=== PATIENT | female | born 1965 | race Caucasian/White ===

== ENCOUNTER → 2020-04-15 10:21 | Outpatient (BNVA) | payer OTHER, SELFPAY | PROVIDERS: Visit Provider Surgery | DX: Z76.89 Persons encountering health services in other specified circumstances (principal) ==

== ENCOUNTER 2020-05-02 09:59 | Outpatient (REF) | payer OTHER, SELFPAY ==
--- NOTE | 2020-05-02 10:11 | FL_ITS ---
PROCEDURE: XR BARIUM ENEMA CLINICAL INFORMATION: Diverticulitis of intestine. Status post one anastomosis. Check for patency and leak. COMPARISON: CT abdomen and pelvis 02/05/2020. TECHNIQUE: A single KUB is obtained. Subsequently a balloon-inflated catheter was inserted through the rectum and 50-50/Gastrografin inserted retrogradely. FINDINGS: On KUB there are postsurgical sutures seen overlying the mid to inferior midline sacrum. The bowel gas pattern is nonspecific. Following retrograde administration of diluted Gastrografin there is normal passage of contrast through the anastomotic sigmoid segment in the mid pelvis. No extravasation of contrast seen. The oral contrast extended to the splenic flexure and appeared unremarkable. FLUOROSCOPY TIME: 1.8 minutes. DOSE AREA PRODUCT: 206 uGy-m2 (microgray-meter squared). IMPRESSION: Widely patent anastomotic sigmoid segment with no extravasation of contrast seen to suspect leak.
[2020-05-02] MEDS: Diatrizoate Meglumine, Sodium 120 ML SOLUTION PR (13:37)
== END 2020-05-02 10:00 | disposition home or self-care (01) ==
LOC: HO.XRAY 09:59
PROVIDERS: Visit Provider Surgery
DX: K57.92 Diverticulitis of intestine, part unspecified, without perforation or abscess without bleeding (principal)
CPT/HCPCS: 74270

== ENCOUNTER 2020-05-05 05:59 | Inpatient (IN) | payer OTHER, SELFPAY ==
[2020-04-20 08:12] VITALS: BMI 47.0
[2020-04-21 11:52] VITALS: BP 133/72; PULSE 91; RESP 18; O2SAT 97; BMI 47.6
--- NOTE | 2020-04-21 12:15 | HO.ANESPROP2 ---
Documented by User: Baylee Ethel 04/21/20 12:33 HPI - Anesthesia Eval Consult details Narrative: 54yo F for colostomy closure S/P bowel resect 01/2020 and 02/2020 [facility] Past Medical History Medical History (Updated 04/21/20 @ 12:43 by Maggie Jett) Anxiety Arthritis Back pain Diverticulitis HTN (hypertension) Lab test negative for COVID-19 virus Obese Wears reading eyeglasses Family History Family history of problems with anesthesia: No Surgical History Surgical History (Updated 04/21/20 @ 12:02 by Maggie Jett) History of colectomy (~02/06/20) History of colectomy (~03/14/20) History of colonoscopy (~2018) History of Problems with Anesthesia: No Social History Social History Are you a primary director of critical care to a significant other at home: No Do you presently have visiting nurse or other home services: No Alcohol intake: never Smoking Status: Never smoker Second Hand Smoke Exposure: No Use of substances other than those prescribed or required for medical reasons: No Have you been hit, kicked, punched, or otherwise hurt by someone within the past year? If so, by whom?: No Advance Directives: Yes Advance Directives on File: Yes Advance Directives Date on File: 03/13/20 Recently lost weight without trying: Yes Narrative Narrative: No recent illness. >4 mets with walking. [address] Muller for infection in incision site Meds Allergies Allergy/AdvReac Type Severity Reaction Status Date / Time atropine Allergy Intermediate abd pain Verified 04/21/20 12:16 ciprofloxacin [From CIPRO] Allergy Intermediate VOMITING Verified 04/21/20 12:16 chlordiazepoxide AdvReac Severe ABDOMINAL Verified 04/21/20 12:16 [From LIBRAX (WITH PAIN CLIDINIUM)] diphenoxylate [From LOMOTIL] AdvReac Severe ABDOMINAL Verified 04/21/20 12:16 PAIN codeine [CODEINE] AdvReac Intermediate NAUSEA Verified 04/21/20 12:16 Home Medications Medication Instructions Recorded Confirmed Type amoxicillin 500 mg-potassium 1 tab PO Q8H 04/14/20 04/21/20 History clavulanate 125 mg tablet escitalopram oxalate 10 mg tablet 10 mg PO DAILY 04/14/20 04/21/20 History fluticasone propionate 50 2 spray INTRANASAL DAILY 04/14/20 04/21/20 History mcg/actuation nasal spray,suspension lisinopril 20 mg tablet 20 mg PO DAILY 04/14/20 04/21/20 History Exam Exam Date and Time: April 21, 2020 1215 Height,Weight and Vital Signs: Height 4 ft 10 in Weight 103.419 kg Last Vital Signs Pulse 91 04/21/20 11:52 Resp 18 04/21/20 11:52 BP 133/72 04/21/20 11:52 Pulse Ox 97 04/21/20 11:52 Body Mass Index 47.6 Pertinent Lab Results Pertinent Lab Results: Laboratory Tests 03/15/20 03/15/20 06:06 06:06 WBC 12.4 H Hgb 11.0 L Hct 34.1 L Plt Count 226 Sodium 137 Potassium 4.5 Chloride 102 BUN 8 L Creatinine 0.59 Narrative Narrative: EKG 01/2020: ST@105, low volt QRS Airway Mallampati Class: I TM Dist: >3cm Neck ROM: Full Loose/Missing/Broken Teeth: Yes (Molar missing) Heart: RRR Lungs: CTAB Assessment and Plan Assessment Anesthesia Assessment: Anesthesia Plan Discussed and PAT Visit Documented by User: Iesha Obrien 05/05/20 08:03 [facility] Past Medical History Medical History (Updated 04/21/20 @ 12:43 by Maggie Jett) Anxiety Arthritis Back pain Diverticulitis HTN (hypertension) Lab test negative for COVID-19 virus Obese Wears reading eyeglasses Surgical History Surgical History (Updated 04/21/20 @ 12:02 by Maggie Jett) History of colectomy (~02/06/20) History of colectomy (~03/14/20) History of colonoscopy (~2018) Social History Social History Are you a primary director of critical care to a significant other at home: No Do you presently have visiting nurse or other home services: No Alcohol intake: never Smoking Status: Never smoker Second Hand Smoke Exposure: No Use of substances other than those prescribed or required for medical reasons: No Have you been hit, kicked, punched, or otherwise hurt by someone within the past year? If so, by whom?: No Advance Directives: Yes Advance Directives on File: Yes Advance Directives Date on File: 03/13/20 Recently lost weight without trying: Yes Meds Allergies Allergy/AdvReac Type Severity Reaction Status Date / Time atropine Allergy Intermediate abd pain Verified 04/21/20 12:16 ciprofloxacin [From CIPRO] Allergy Intermediate VOMITING Verified 04/21/20 12:16 chlordiazepoxide AdvReac Severe ABDOMINAL Verified 04/21/20 12:16 [From LIBRAX (WITH PAIN CLIDINIUM)] diphenoxylate [From LOMOTIL] AdvReac Severe ABDOMINAL Verified 04/21/20 12:16 PAIN codeine [CODEINE] AdvReac Intermediate NAUSEA Verified 04/21/20 12:16 Home Medications Medication Instructions Recorded Confirmed Type amoxicillin 500 mg-potassium 1 tab PO Q8H 04/14/20 04/21/20 History clavulanate 125 mg tablet escitalopram oxalate 10 mg tablet 10 mg PO DAILY 04/14/20 04/21/20 History fluticasone propionate 50 2 spray INTRANASAL DAILY 04/14/20 04/21/20 History mcg/actuation nasal spray,suspension lisinopril 20 mg tablet 20 mg PO DAILY 04/14/20 04/21/20 History Exam Airway Mallampati Class: II TM Dist: >3cm Neck ROM: Full Heart: RRR Lungs: CTA BL Assessment and Plan Final Anesthetic Review NPO: Yes ASA Class: III Final Preanesthetic Review: Meds/Allgs Chart Reviewed and Consent Obtained/Reviewed Patient Risk: Intermediate Procedure Risk: Intermediate Anesthetic Plan Anesthetic Plan: GA Disposition: Standard PACU
[2020-05-05] VITALS (21 sets, daily range): BP systolic 113–166; BP diastolic 51–90; PULSE 85–103; RESP 16–20; TEMP 35.9–37.4; O2SAT 95–100
[2020-05-05] MEDS: Lactated Ringers 1,000 ML 100 ML IVCONT (08:02)
--- NOTE | 2020-05-05 08:10 | MHC.SHP ---
Pre-Procedural Eval Section A The patient is an INPATIENT: No Changes since office visit: Yes Patient answered all questions; No Cold of Flu in the past 2 weeks, No New Medical Problems and No Changes in Medication The History & Physical has been completed within 30 days and I have reviewed it.: Yes Section B Chief Complaint: S/P colostomy closure Allergies: Allergies Allergy/AdvReac Type Severity Reaction Status Date / Time atropine Allergy Intermediate abd pain Verified 04/21/20 12:16 ciprofloxacin [From CIPRO] Allergy Intermediate VOMITING Verified 04/21/20 12:16 chlordiazepoxide AdvReac Severe ABDOMINAL Verified 04/21/20 12:16 [From LIBRAX (WITH PAIN CLIDINIUM)] diphenoxylate [From LOMOTIL] AdvReac Severe ABDOMINAL Verified 04/21/20 12:16 PAIN codeine [CODEINE] AdvReac Intermediate NAUSEA Verified 04/21/20 12:16 Plan Diagnosis/Plan: Unchanged Patient has been examined and remains a candidate for the planned procedure
[2020-05-05 08:24] LABS: COVID-19 Test Negative (Negative)
[2020-05-05] MEDS: Midazolam HCl/PF 2 MG/2 ML VIAL IVPUSH (08:29)
--- NOTE | 2020-05-05 11:30 | P.BOP_ITS ---
Brief Operative Note Date of procedure: 05/05/20 <Pastora Okeefe PA-C - Last Filed: 05/05/20 11:31> 05/05/20 <Mart Muller MD - Last Filed: 05/05/20 13:34> Pre-op diagnosis: perforated sigmoid diverticulitis, s/p loop transverse colostomy <Pastora Okeefe PA-C - Last Filed: 05/05/20 11:31> Post-op diagnosis: same <Pastora Okeefe PA-C - Last Filed: 05/05/20 11:31> Procedure: Reversal of transverse loop colostomy, repair of parastomal hernia <Pastora Okeefe PA-C - Last Filed: 05/05/20 11:31> Surgeon: MART MULLER MD <Pastora Okeefe PA-C - Last Filed: 05/05/20 11:31> Anesthesia: GETA <Pastora Okeefe PA-C - Last Filed: 05/05/20 11:31> Insurance Claim Approver: Pastora Okeefe <Pastora Okeefe PA-C - Last Filed: 05/05/20 11:31> Estimated blood loss (mL): 75 <Pastora Okeefe PA-C - Last Filed: 05/05/20 11:31> IV fluids (mL): 1,100 <Pastora Okeefe PA-C - Last Filed: 05/05/20 11:31> Urine output (mL): 190 <Pastora Okeefe PA-C - Last Filed: 05/05/20 11:31> Pathology: other (parastomal hernia sac) <Pastora Okeefe PA-C - Last Filed: 05/05/20 11:31> Condition: stable <SUSANA Hernandez Last Filed: 05/05/20 11:31> Disposition: PACU <SUSANA Hernandez Last Filed: 05/05/20 11:31>
[2020-05-05] MEDS: HYDROmorphone HCl 0.5 MG/0.5 ML SYRINGE 0.25 MG IVPUSH ×4 (12:08→13:23)
[2020-05-05] MEDS: oxyCODONE HCl Immed Release 5 MG TABLET 10 MG PO (13:01)
--- NOTE | 2020-05-05 13:35 | W.PM.OPN ---
Operative Note Operative Note Narrative: Preoperative diagnosis: Sigmoid diverticulitis, status post transverse loop colostomy Postoperative diagnosis: same , parastomal hernia Procedure: closure of transverse loop colostomy, repair of peristomal hernia without mesh Surgeon: Deandre Muller MD Bleach Plant Operator: ALEC Hernandez anesthesia: General Specimen: Transverse loop colostomy Estimated blood loss: 70 Complications: None Indications for procedure: This is a 54-year-old female patient with history of perforated sigmoid diverticulitis, status post transverse loop colostomy followed by hand assisted laparoscopic sigmoid resection presenting now for closure of loop colostomy. Patient underwent a barium enema earlier this week which showed a well-healed anastomosis with no evidence of leak. Operative findings patient was found to have dense adhesions to the anterior abdominal wall involving colon and Small-bowel. A large parastomal hernia was identified as well containing small bowel. Procedure details: Patient was brought to the OR placed in a supine position. After administering general anesthesia the patient's abdomen was prepped with ChloraPrep and draped in a sterile fashion. It should be noted that the colostomy was closed using a running Prolene suture prior to prepping the patient. A surgical time-out was called and consent confirmed. Patient was administered IV antibiotics and Venodyne boots were in place. Vega catheter was placed as well. Local anesthesia consisting of 0.75% Sensorcaine was infiltrated around the colostomy. Elliptical incision was then created oriented longitudinally around the colostomy. This was carried out through subcutaneous tissue along the colon wall down to the fascia. The abdominal cavity was entered. A large peritoneal sac was identified containing small bowel consistent with a parastomal hernia. The proximal and distal transverse colon was dissected free from the surrounding scar tissue. With this was completely mobilized the proximal bowel was divided using a CAMRON stapler. The bowel was then dissected distally. Several small enterotomies were created at the time of dissection. These were controlled using Allis clamps. The distal transverse colon was then divided using a CAMRON stapler as well. A functional end-to-end anastomosis was then created by opening both proximal and distal transverse colon at the anti mesenteric border. A CAMRON stapler was then placed into both colotomies, and the stapler fired. The enterotomy resistant was then closed using a TA stapler. TA staple line was reinforced using interrupted Lembert 3 0 Surgilon sutures. The anastomosis was returned to the abdominal cavity. The abdominal cavity was irrigated with saline solution and suctioned dry. The peritoneal sac of the parastomal hernia was then dissected free and a very weakened fascia identified. Fascia was closed using a running 1. Maxon suture. Subcutaneous tissue and dermis were reapproximated using interrupted 3 0 Polysorb sutures. Skin was closed using skin enzo. Sterile dressings were then applied. The patient tolerated the procedure well. Sponge, instrument, and needle counts reported as correct. The patient was transferred to PACU in stable condition.
[2020-05-05] MEDS: Dextrose 5 % and Lactated Ring 1,000 ML 125 ML IVCONT (16:26)
[2020-05-05] MEDS: Morphine Sulfate 2 MG/ML CARTRIDGE 4 MG IVPUSH ×2 (16:26→20:17)
[2020-05-05] MEDS: 0.9 % Sodium Chloride Flush 3 ML SYRINGE IVFLUSH (16:26)
[2020-05-05] MEDS: LORazepam 2 MG/ML VIAL 1 MG IVPUSH (22:05)
[2020-05-06] VITALS (9 sets, daily range): BP systolic 139–168; BP diastolic 71–76; PULSE 84–114; RESP 18; TEMP 36.1–38.7; O2SAT 95–100
[2020-05-06] MEDS: Dextrose 5 % and Lactated Ring 1,000 ML 125 ML IVCONT (00:17)
[2020-05-06] MEDS: Morphine Sulfate 2 MG/ML CARTRIDGE 4 MG IVPUSH (01:21)
[2020-05-06 06:16] LABS: MANUAL DIFF FLAG NO
[2020-05-06 06:33] LABS: Basophils Percent Auto 0.2 % (0-2); Eosinophils Percent Auto 0.1 % (0-4); Hemoglobin 10.4 g/dl (12.0-16.0); Imm Gran Abs Auto 0.04 X10*3/uL (0.00-0.03); Imm Gran Pct Auto 0.3 % (0.0-0.4); Lymphocytes Absolute Auto 0.9 X10*3/uL (1.2-4.9); Lymphocytes Percent Auto 7.4 % (20-40); Mean Corpuscular HGB Conc 32.5 g/dl (31.0-35.0); Mean Corpuscular Hemoglobin 29.6 pg (27.0-33.0); Mean Corpuscular Volume 91.2 fL (80-98); Mean Platelet Volume 10.8 fL (9.4-12.3); Monocytes Absolute Auto 1.3 X10*3/uL (0.1-1.2); Monocytes Percent Auto 10.7 % (2-11); Neutrophils Absolute Auto 10.2 X10*3/uL (2.0-8.3); Neutrophils Percent Auto 81.3 % (45-73); Platelet Count 238 X10*3/uL (160-400); Red Blood Count 3.51 X10*6/uL (4.20-5.50); Red Cell Distribution Width 13.9 % (11.0-16.0); White Blood Count 12.5 X10*3/uL (4.8-10.8)
[2020-05-06 07:00] LABS: Alanine Aminotransferase 15 U/L (0-31); Albumin Level 3.4 g/dL (3.5-5.0); Alkaline Phosphatase 73 U/L (39-117); Anion Gap 11 (12-20); Aspartate Amino Transferase 12 U/L (5-31); Bilirubin Total 0.4 mg/dL (0.0-1.0); Blood Urea Nitrogen 8 mg/dL (9-16); Calcium 8.4 mg/dL (8.4-10.2); Carbon Dioxide 28 mmol/L (22-29); Chloride 101 mmol/L (96-108); Creatinine Clr Calc Pharmacy 106.6; Estimated Glomerular Filt Rate > 60; Glucose Fasting 158 mg/dL (60-99); Potassium 4.3 mmol/l (3.3-5.1); Sodium 136 mmol/L (135-145); Total Protein 5.7 g/dL (6.5-8.0)
--- NOTE | 2020-05-06 08:13 | HO.POSTANES ---
Post Anesthesia Evaluation Post Anesthesia Evaluation Vital Signs: Vital Signs Temp Pulse Resp BP Pulse Ox 05/06/20 02:58 98.5 F 84 18 150/75 H 95 05/05/20 22:51 97.9 F 96 18 125/51 L 97 Anesthesia: General Mental Status: Awake Pain Control: Satisfactory Nausea/Vomiting: None Hydration: Adequate Anesthesia-Related Issues: No Anes. Related Issues
[2020-05-06] MEDS: HYDROmorphone HCl 0.5 MG/0.5 ML SYRINGE IVPUSH ×5 (08:16→23:23)
--- NOTE | 2020-05-06 09:15 | MHC.CM.PN ---
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 FOR N[facility] FOR POST SURGIVAL ASSESSMENT TRANSPORTATION [facility] P[facility] DR SCOTT MOROCHO. RATNA PATIENT TO CALL FOR POST HOSPITAL DISCHARGE FOLLOW UP FAUZIA ROBLERO PER DISCHARGE INSTRUCTIONS
--- NOTE | 2020-05-06 14:10 | PM.PNGS ---
Subjective Subjective Interval history: Reports incisional pain, passing flatus this morning. Tolerated clear liquids, and she feels ready to start regular low residue diet. Physical Exam Vital Signs: Vital Signs: Vital Signs Temp Pulse Resp BP Pulse Ox 05/06/20 11:57 98.0 F 106 H 18 147/75 H 98 05/06/20 08:00 97.0 F 98 18 140/76 H 97 05/06/20 02:58 98.5 F 84 18 150/75 H 95 05/05/20 22:51 97.9 F 96 18 125/51 L 97 05/05/20 19:58 98.2 F 103 H 18 156/58 H 99 05/05/20 15:21 98 F 101 H 18 148/72 H 96 Body Mass Index 47.6 Const: Other: No acute distress, comfortable in bed Resp: Other: breathing comfortably on room air. No respiratory distress GI: Other: Softly distended, bowel sounds present, incision clean, dressings intact. Skin: General skin exam: no rashes or lesions noted and dry skin Progress Note: A&P Assessment and plan (1) History of colostomy reversal: Status: Acute Assessment and Plan: POD # 1 s/p colostomy reversal. Patient has stable vitals, wounds are clean and intact. Encouraged ambulation today. Will discontinue the muniz catheter and advance diet. Fall Risk Details Current Medications: Current Medications Generic Name Dose Route Start Last Admin Trade Name Freq PRN Reason Stop Dose Admin Al Hydroxide/Mg Hydroxide 30 ml 05/05/20 15:38 Magnesium Hydrox/Alum Hydrox 30 Ml Oral.Susp PO Q4H PRN Heartburn/Nausea Hydromorphone HCl 0.5 mg 05/06/20 08:05 05/06/20 12:20 Hydromorphone Hcl 0.5 Mg/0.5 Ml Syringe IVPUSH 0.5 mg Q2H PRN Administration abdominal pain Acetaminophen 1,000 mg in 100 mls @ 400 mls/hr 05/05/20 15:38 05/06/20 12:25 Ofirmev IV Infused Q6H PRN Infusion Abdominal Pain Ondansetron HCl 4 mg 05/05/20 15:38 Ondansetron Hcl 4 Mg/2 Ml Vial IVPUSH Q8H PRN Nausea and Vomiting Sodium Chloride 3 ml 05/05/20 16:00 05/06/20 08:16 0.9 % Sodium Chloride Flush 3 Ml Syringe IVFLUSH Not Given QSHIFT MONIQUE Zolpidem Tartrate 5 mg 05/05/20 15:38 Zolpidem Tartrate 5 Mg Tablet PO BEDTIME PRN Insomnia Time Spent With Patient Time: Total time spent is greater than 50% in coordination of care (as documented) at patient's floor/unit and/or counseling patient: Time with patient: 15 - 24 minutes
[2020-05-06] MEDS: 0.9 % Sodium Chloride Flush 3 ML SYRINGE IVFLUSH ×2 (16:55→23:23)
[2020-05-06] MEDS: ondansetron HCL 4 MG/2 ML VIAL IVPUSH (20:33)
[2020-05-06] MEDS: diphenhydrAMINE HCL 50 MG/ML VIAL 12.5 MG IVPUSH (21:35)
[2020-05-07] VITALS (9 sets, daily range): BP systolic 109–162; BP diastolic 49–88; PULSE 93–108; RESP 16–20; TEMP 36.4–37.4; O2SAT 95–99
[2020-05-07] MEDS: HYDROmorphone HCl 0.5 MG/0.5 ML SYRINGE IVPUSH ×6 (01:34→19:47)
--- NOTE | 2020-05-07 02:56 | PC.NURSE ---
7p-7a; 1949; Patient's oral temperature elevated at 101.7 PRN IV tylenol administered, Dr. Elgin Fonseca made aware of patient's temperature. 2129; Oral temperature rechecked 99.0 Continue to monitor temperature.
[2020-05-07] MEDS: 0.9 % Sodium Chloride Flush 3 ML SYRINGE IVFLUSH ×2 (07:37→15:50)
--- NOTE | 2020-05-07 11:08 | PM.PNGS ---
Subjective Subjective Patient reports: feels better, tolerating a regular diet, flatus and bowel movement Interval history: She states that she is feeling pretty good. She is up ambulating and moving her bowels. She is tolerating her diet without N/V Physical Exam Vital Signs: Vital Signs: Vital Signs Temp Pulse Resp BP Pulse Ox 05/07/20 07:55 99.3 F 108 H 16 147/74 H 97 05/07/20 05:08 18 05/07/20 04:00 98.9 F 105 H 18 133/67 98 05/07/20 01:34 18 05/07/20 01:33 141/75 H 05/06/20 23:23 18 05/06/20 23:18 98.5 F 100 18 139/74 96 05/06/20 21:34 99.0 F 05/06/20 19:57 18 05/06/20 19:46 101.7 F H 114 H 18 147/71 H 98 05/06/20 15:40 98.5 F 114 H 18 168/71 H 100 05/06/20 11:57 98.0 F 106 H 18 147/75 H 98 Body Mass Index 47.6 Const: General: comfortable and no acute distress Chest: Chest palpation & inspection: normal inspection of the chest Resp: Effort & Inspection: normal respiratory effort and able to speak in complete sentences Auscultation: clear to auscultation bilaterally Cardio: Rhythm: regular rhythm Heart sounds: S1 normal heart sound present and S2 normal heart sound present GI: Inspection: Yes normal to inspection, Yes incision (clean, dry, intacy) and Yes Abdominal panniculus present Palpation (GI): Soft to palpation and Tenderness to palpation present (GI) (mild around incision site) Skin: Lesions: no lesions Rashes: no rashes Extrem: General: Yes no calf tenderness Psych: Speech and movement: Normal speech and movement present Affect: normal affect Progress Note: A&P Assessment and plan (1) History of colostomy reversal: Problem details: 54 yo female s/p colostomy reversal. Doing well. ABD exam benign. Incision c/d/i. She is now POD#2. Status: Acute Assessment and Plan: Continue current care, encouraged ambulation and IS She states she was told she would be leaving on Saturday. Fall Risk Details Current Medications: Current Medications Generic Name Dose Route Start Last Admin Trade Name Freq PRN Reason Stop Dose Admin Al Hydroxide/Mg Hydroxide 30 ml 05/05/20 15:38 Magnesium Hydrox/Alum Hydrox 30 Ml Oral.Susp PO Q4H PRN Heartburn/Nausea Hydromorphone HCl 0.5 mg 05/06/20 08:05 05/07/20 08:48 Hydromorphone Hcl 0.5 Mg/0.5 Ml Syringe IVPUSH 0.5 mg Q2H PRN Administration abdominal pain Acetaminophen 1,000 mg in 100 mls @ 400 mls/hr 05/05/20 15:38 05/07/20 08:50 Ofirmev IV Infused Q6H PRN Infusion Abdominal Pain Ondansetron HCl 4 mg 05/05/20 15:38 05/06/20 20:33 Ondansetron Hcl 4 Mg/2 Ml Vial IVPUSH 4 mg Q8H PRN Administration Nausea and Vomiting Sodium Chloride 3 ml 05/05/20 16:00 05/07/20 07:37 0.9 % Sodium Chloride Flush 3 Ml Syringe IVFLUSH 3 ml QSHIFT MONIQUE Administration Zolpidem Tartrate 5 mg 05/05/20 15:38 Zolpidem Tartrate 5 Mg Tablet PO BEDTIME PRN Insomnia Time Spent With Patient Time: Total time spent is greater than 50% in coordination of care (as documented) at patient's floor/unit and/or counseling patient: Time with patient: less than 15 minutes Progress Note: Quality VTE Deep Vein Thrombosis/Pulmonary Embolism Present on Admission: No
[2020-05-07] MEDS: lisinopriL 20 MG TABLET PO (17:52)
[2020-05-07] MEDS: Escitalopram Oxalate 10 MG TABLET PO (17:53)
--- NOTE | 2020-05-07 18:44 | PM.PNGS ---
Physical Exam Vital Signs: Vital Signs: Vital Signs Temp Pulse Resp BP Pulse Ox 05/07/20 16:00 99.3 F 103 H 18 125/70 99 05/07/20 11:12 97.6 F 93 20 118/49 L 95 05/07/20 07:55 99.3 F 108 H 16 147/74 H 97 05/07/20 05:08 18 05/07/20 04:00 98.9 F 105 H 18 133/67 98 05/07/20 01:34 18 05/07/20 01:33 141/75 H 05/06/20 23:23 18 05/06/20 23:18 98.5 F 100 18 139/74 96 05/06/20 21:34 99.0 F 05/06/20 19:57 18 05/06/20 19:46 101.7 F H 114 H 18 147/71 H 98 Body Mass Index 47.6 Progress Note: A&P Fall Risk Details Current Medications: Current Medications Generic Name Dose Route Start Last Admin Trade Name Freq PRN Reason Stop Dose Admin Al Hydroxide/Mg Hydroxide 30 ml 05/05/20 15:38 Magnesium Hydrox/Alum Hydrox 30 Ml Oral.Susp PO Q4H PRN Heartburn/Nausea Escitalopram Oxalate 10 mg 05/07/20 17:45 05/07/20 17:53 Escitalopram Oxalate 10 Mg Tablet PO 10 mg DAILY MONIQUE Administration Fluticasone Propionate 2 spray 05/07/20 17:45 Fluticasone Propionate Nasal 16 Gm [place] NOSTRIL-B DAILY MONIQUE Hydromorphone HCl 0.5 mg 05/06/20 08:05 05/07/20 15:50 Hydromorphone Hcl 0.5 Mg/0.5 Ml Syringe IVPUSH 0.5 mg Q2H PRN Administration abdominal pain Acetaminophen 1,000 mg in 100 mls @ 400 mls/hr 05/05/20 15:38 05/07/20 17:37 Ofirmev IV Infused Q6H PRN Infusion Abdominal Pain Lisinopril 20 mg 05/07/20 18:00 05/07/20 17:52 Lisinopril 20 Mg Tablet PO 20 mg DAILY MONIQUE Administration Protocol Sodium Chloride 3 ml 05/05/20 16:00 05/07/20 15:50 0.9 % Sodium Chloride Flush 3 Ml Syringe IVFLUSH 3 ml QSHIFT MONIQUE Administration Zolpidem Tartrate 5 mg 05/05/20 15:38 Zolpidem Tartrate 5 Mg Tablet PO BEDTIME PRN Insomnia Time Spent With Patient Time: Due to unfamiliarity with the new EMR [employer] [employer], I am writing a brief note as an addendum to Mr. Delgado Trent's PA-C progress note from today. I have examined and evaluated the patient at the bedside with Mr. Ruckerald, and I confirm his findings and plan as documeted. Patient is doing well. She has had BM, flatus, and is tolerating food. We will restart her oral meds including HTN meds. Time with patient: less than 15 minutes Progress Note: Quality VTE Deep Vein Thrombosis/Pulmonary Embolism Present on Admission: No
[2020-05-07] MEDS: Fluticasone Propionate Nasal 16 GM SPRAY 2 SPRAY NOSTRIL-B (19:37)
[2020-05-07] MEDS: diphenhydrAMINE HCL 25 MG TABLET PO (21:45)
[2020-05-08] VITALS (11 sets, daily range): BP systolic 104–143; BP diastolic 54–66; PULSE 83–99; RESP 17–19; TEMP 36.1–37.1; O2SAT 96–99
[2020-05-08] MEDS: 0.9 % Sodium Chloride Flush 3 ML SYRINGE IVFLUSH ×4 (00:58→21:03)
[2020-05-08] MEDS: HYDROmorphone HCl 0.5 MG/0.5 ML SYRINGE IVPUSH ×3 (02:39→09:55)
[2020-05-08] MEDS: Escitalopram Oxalate 10 MG TABLET PO (08:36)
[2020-05-08] MEDS: lisinopriL 20 MG TABLET PO (08:36)
[2020-05-08] MEDS: Fluticasone Propionate Nasal 16 GM SPRAY 2 SPRAY NOSTRIL-B (08:37)
--- NOTE | 2020-05-08 10:14 | MHC.CM.PN ---
nurse pulmonary care nurse note electronic medical record reviewed along with case discussed with staff nurse, met with patient , laney reported feeling someqwhat better now eating regular deiet, passing flatus and had mariluz movement. she has been up to chair and ambulating. continues with iv acteaminophen q6 hrs prn pain management and iv hydromomorphine pain management , try to conver to oral analgeics today discharge plan home with new referral to the [facility] for rnsuigns , post op home assessment ,dauiagnosis sighn symnptom management and meeciation reconcialtion and assess apin management transportation family patient to make follow up with pcp and surgeon pwer discharge plan .
--- NOTE | 2020-05-08 12:06 | P.PNGS_ITS ---
Subjective Subjective Patient reports: no new complaints <JOSE MARIA Foley Last Filed: 05/08/20 14:34> Interval history: She is feeling well today. NO new complaints. Pain continues to improve. Eating and moving her bowels. She wishes to shower. <JOSE MARIA Foley - Last Filed: 05/08/20 14:34> Physical Exam Vital Signs: Vital Signs: Vital Signs Temp Pulse Resp BP Pulse Ox 05/08/20 11:31 97.3 F 83 18 135/61 96 05/08/20 07:20 97.3 F 90 17 127/66 97 05/08/20 06:05 18 05/08/20 06:00 97 F 89 18 118/57 L 99 05/08/20 02:39 18 05/08/20 02:34 98.2 F 88 18 125/59 L 98 05/08/20 00:00 98.8 F 99 18 143/66 H 99 05/07/20 19:47 18 05/07/20 19:26 98.6 F 93 109/57 L 97 05/07/20 16:00 99.3 F 103 H 18 125/70 99 Body Mass Index 47.6 <JOSE MARIA Foley - Last Filed: 05/08/20 14:34> Const: General: comfortable and no acute distress <JOSE MARIA Foley Last Filed: 05/08/20 14:34> GI: Other: Incision c/d/i. Mild periwound erythema. ABD with expected incisional tenderness. <JOSE MARIA Foley Last Filed: 05/08/20 14:34> Inspection: Yes Abdominal panniculus present <JOSE MARIA Foley Last Filed: 05/08/20 14:34> Palpation (GI): Soft to palpation <JOSE MARIA Foley Last Filed: 05/08/20 14:34> Auscultation: normal bowel sounds <JOSE MARIA Foley Last Filed: 05/08/20 14:34> Skin: Other: Warm and dry <JOSE MARIA Foley Last Filed: 05/08/20 14:34> Lesions: no lesions <JOSE MARIA Foley Last Filed: 05/08/20 14:34> Rashes: no rashes <JOSE MARIA Foley Last Filed: 05/08/20 14:34> Extrem: General: Yes no calf tenderness <JOSE MARIA Foley - Last Filed: 05/08/20 14:34> Psych: Mental Status: mental status grossly normal <JOSE MARIA Foley - Last Filed: 05/08/20 14:34> Progress Note: A&P Assessment and plan (1) History of colostomy reversal: Problem details: 54 yo female s/p colostomy reversal. Doing well. ABD exam benign. Incision c/d/i. She is now POD#3. <JOSE MARIA Foley - Last Filed: 05/08/20 14:34> Status: Acute <JOSE MARIA Foley - Last Filed: 05/08/20 14:34> Assessment and Plan: Change pain mgmt to PO Encourage OOB Regular diet She will likely be D/C tomorrow after seeing Dr Muller. <JOSE MARIA Foley - Last Filed: 05/08/20 14:34> Fall Risk Details Current Medications: Current Medications Generic Name Dose Route Start Last Admin Trade Name Freq PRN Reason Stop Dose Admin Al Hydroxide/Mg Hydroxide 30 ml 05/05/20 15:38 Magnesium Hydrox/Alum Hydrox 30 Ml Oral.Susp PO Q4H PRN Heartburn/Nausea Escitalopram Oxalate 10 mg 05/07/20 17:45 05/08/20 08:36 Escitalopram Oxalate 10 Mg Tablet PO 10 mg DAILY MONIQUE Administration Fluticasone Propionate 2 spray 05/07/20 17:45 05/08/20 08:37 Fluticasone Propionate Nasal 16 Gm [place] NOSTRIL-B 2 spray DAILY MONIQUE Administration Acetaminophen 1,000 mg in 100 mls @ 400 mls/hr 05/05/20 15:38 05/07/20 17:37 Ofirmev IV Infused Q6H PRN Infusion Abdominal Pain Lisinopril 20 mg 05/07/20 18:00 05/08/20 08:36 Lisinopril 20 Mg Tablet PO 20 mg DAILY MONIQUE Administration Protocol Oxycodone HCl 5 mg 05/08/20 10:36 Oxycodone Hcl Immed Release 5 Mg Tablet PO Q4H PRN abd pain Sodium Chloride 3 ml 05/05/20 16:00 05/08/20 08:36 0.9 % Sodium Chloride Flush 3 Ml Syringe IVFLUSH 3 ml QSHIFT MONIQUE Administration Zolpidem Tartrate 5 mg 05/05/20 15:38 Zolpidem Tartrate 5 Mg Tablet PO BEDTIME PRN Insomnia <JOSE MARIA Foley - Last Filed: 05/08/20 14:34> Time Spent With Patient Time: Total time spent is greater than 50% in coordination of care (as documented) at patient's floor/unit and/or counseling patient: <JOSE MARIA Foley - Last Filed: 05/08/20 14:34> Patient was examined and evaluated at th bedside with Mr. Delgado Trent PA-C, and I confirm his findings and plan as documented above. Patient is tolerating regular diet, feels only occasional abdominal discomfort, having BM's. I discussed discharge today, but patient insists she was told that she would stay until Saturday to see prior to discharge. Will thus keep pt until Saturday. <Puneet Walsh MD - Last Filed: 05/08/20 15:22> Time with patient: less than 15 minutes <JOSE MARIA Foley - Last Filed: 05/08/20 14:34> Progress Note: Quality VTE Deep Vein Thrombosis/Pulmonary Embolism Present on Admission: No <JOSE MARIA Foley - Last Filed: 05/08/20 14:34>
[2020-05-08] MEDS: oxyCODONE HCl Immed Release 5 MG TABLET PO ×3 (12:46→21:02)
[2020-05-08] MEDS: diphenhydrAMINE HCL 25 MG TABLET PO (21:02)
[2020-05-09] VITALS: BP 100/68; PULSE 78; RESP 19; TEMP 36.2; O2SAT 96
[2020-05-09] MEDS: oxyCODONE HCl Immed Release 5 MG TABLET PO ×2 (01:25→05:47)
[2020-05-09 04:00] VITALS: BP 138/68; PULSE 89; RESP 19; TEMP 36.8; O2SAT 100
[2020-05-09 08:00] VITALS: BP 143/56; PULSE 118; RESP 19; TEMP 36.8; O2SAT 95
[2020-05-09] MEDS: lisinopriL 20 MG TABLET PO (08:29)
[2020-05-09] MEDS: Fluticasone Propionate Nasal 16 GM SPRAY 2 SPRAY NOSTRIL-B (08:29)
[2020-05-09] MEDS: Escitalopram Oxalate 10 MG TABLET PO (08:29)
--- NOTE | 2020-05-09 08:35 | MHC.CM.PN ---
Discharge planned for today, no services ordered. Pt will arrange transport
--- NOTE | 2020-05-09 14:30 | P.DS_ITS ---
DS: Providers Provider Date of admission: 05/05/20 05:59 Primary care physician: Dea Gutiérrez DS: Diagnosis Discharge Diagnosis (1) History of colostomy reversal: Status: Resolved DS: Summary Hospital Course Hospital Course: Brief HPI: Ms. Natarajan is 54 year old female with a history of perforated sigmoid diverticulitis s/p diverting loop transverse colostomy in January 2020 and subsequently s/p CONCHITA sigmoid resection in February 2020. She underwent a barium enema which demonstrated a patent anastomosis with no leak. She now presents for reversal of the transverse colostomy. On 05/05/20, reversal of transverse loop colostomy and repair of parastomal hernia was performed by Dr. Muller without complication. The patient tolerated the procedure well and was admitted to the medical/surgical floor for observation. The patient had an uncomplicated post operative course. On POD #1, she reported pain not relieved by morphine and this was switched to dilaudid with better control. She was tolerating clear liquids and felt hungry and was advanced to a solid diet. Her muniz was removed. She was ambulated. The following post operative days, her pain became better controlled on PRN analgesics, she was tolerating solid food and had good GI function with multiple bowel movements. Her abdomen remained benign and incision clean with appropriate post op tenderness. She continued to use the abdominal binder daily. She felt ready for discharge and was discharged to home on 05/09/20 in stable condition. She is to follow up with Dr. Muller in the office. Status at Discharge Functional status at discharge: independent ambulation Overall status at discharge: patient is progressing back to baseline Time Spent with Patient Time attestation: Total time spent providing and/or coordinating discharge services: Quality: VTE Deep Vein Thrombosis/Pulmonary Embolism Present on Admission: No Physical Exam Vital Signs: Vital Signs: Vital Signs Temp Pulse Resp BP Pulse Ox 05/09/20 08:00 98.2 F 118 H 19 143/56 H 95 05/09/20 04:00 98.3 F 89 19 138/68 100 05/09/20 00:00 97.2 F 78 19 100/68 96 05/08/20 23:12 97.8 F 95 19 104/55 L 96 05/08/20 19:28 98.8 F 99 18 113/54 L 99 05/08/20 15:28 98.4 F 97 18 105/55 L 97 Body Mass Index 47.6 Const: General: comfortable, no acute distress, well developed and alert Orientation/consciousness: patient oriented x3 Eyes: Sclerae: sclerae normal Resp: Effort & Inspection: normal respiratory effort Cardio: Rate: regular rate GI: Inspection: Yes distended, Yes incision (clean) and Yes obesity Palpation (GI): Soft to palpation, Tenderness to palpation present (GI) (incisional), no guarding, not rigid and No Rebound tenderness present Skin: General skin exam: no rashes or lesions noted Neuro: General: patient oriented x3 Extrem: General: Yes no clubbing, cyanosis or edema DS: Data Data Completed and Pending Completed studies during hospitalization [Text1]: Pending at discharge 05/05/20 10:02 Surgical [PTH] Routine A. Transverse loop colostomy, excision: Chronically inflamed enterocutaneous tissue consistent with colostomy. B. Parastomal hernia sac, herniorrhaphy: Chronically inflamed fibrovascular and adipose tissue consistent with hernia sac. Discharge Plan Discharge Patient Disposition: Home, Self-Care Referrals: Dea Sawant [Other] Deandre Muller MD [Physician] - 05/17/20 Discharge Medications: New oxycodone 5 mg tablet 5 mg PO Q6H PRN (Reason: pain) 5 Days Qty: 14 RF: 0 Discontinued oxycodone 5 mg tablet 5 mg PO Q6H PRN (Reason: pain) Qty: 20 RF: 0 amoxicillin-pot clavulanate 500-125 mg tablet 1 tab PO Q8H RF: 0 Discharge Orders: Discharge Order (Routine); Ordered 05/09/20 Ordered By: Deandre Muller Diet: advance to your usual diet Activity on Discharge: No heavy lifting Discharge Date/Time: 05/09/20 11:10 Activity Restrictions/Additional Instructions: If the incision area is tender, you may apply an ice pack for short intervals (No more than 20 minutes on, followed by at least 20 minutes off). Do not apply heat. Do not use creams, lotions, or topical antibiotics unless instructed to do so by your surgeon. These can cause infection or allergic reaction. Ok to shower. You have enzo closing your incision and these will be removed a pproximately 10-14 days after surgery. Call Your Doctor If: -Your temperature exceeds 101.5? F -You experience excessive pain or swelling -You have an unexpected reaction to medication -You have excessive bleeding -You experience continued vomiting/nausea -Your incision begins to separate -Your incision shows signs of infection such as increased redness, swelling, excessive pain, drainage (light blood or clear fluid is normal) or heat Visit Report Forms: Patient Portal Discharge page Care Plan Goals: Return to normal activity and diet Health Concerns: Sigmoid diverticulitis Plan of Treatment: S/P closure of colostomy
== END 2020-05-09 11:10 | disposition home or self-care (01) | DRG 331 ==
LOC: HO.SSSA 06:00 → HO.S3 13:15
PROVIDERS: Admitting Provider Surgery; PCP Internal Medicine; Visit Provider Surgery
PROC: 0DBL0ZZ Excision of Transverse Colon, Open Approach (ICD-10-PCS; CPT 44620; principal; 2020-05-05 08:10)
DX: Z43.3 Encounter for attention to colostomy (principal); K43.5 Parastomal hernia without obstruction or gangrene; F41.9 Anxiety disorder, unspecified; Z20.828 Contact with and (suspected) exposure to other viral communicable diseases; Z79.51 Long term (current) use of inhaled steroids; Z79.899 Other long term (current) drug therapy
CPT/HCPCS: 36415; 80053; 85025; 87635; 88302; 88304; 99231; J0131; J0330; J1100; J1170; J1200; J2060; J2250; J2270; J2405; J3010; Q0163

== ENCOUNTER → 2020-05-16 15:19 | Outpatient (BNVA) | payer OTHER, SELFPAY | PROVIDERS: PCP Internal Medicine; Referring Provider Internal Medicine; Visit Provider Surgery | DX: Z76.89 Persons encountering health services in other specified circumstances (principal) ==

== ENCOUNTER → 2020-05-24 10:57 | Outpatient (BNVA) | payer OTHER, SELFPAY | PROVIDERS: PCP Internal Medicine; Referring Provider Internal Medicine; Visit Provider Surgery | DX: Z76.89 Persons encountering health services in other specified circumstances (principal) ==

== ENCOUNTER → 2020-06-07 11:30 | Outpatient (BNVA) | payer OTHER, SELFPAY | PROVIDERS: PCP Internal Medicine; Visit Provider Surgery | DX: Z76.89 Persons encountering health services in other specified circumstances (principal) ==

== ENCOUNTER → 2020-07-19 09:35 | Outpatient (BNVA) | payer OTHER, SELFPAY | PROVIDERS: PCP Internal Medicine; Visit Provider Surgery | DX: Z76.89 Persons encountering health services in other specified circumstances (principal) ==

== ENCOUNTER → 2020-11-03 14:10 | Outpatient (BNVA) | payer OTHER, SELFPAY | PROVIDERS: PCP Internal Medicine; Visit Provider Surgery ==

== ENCOUNTER → 2020-11-18 09:59 | Outpatient (BNVA) | payer OTHER, SELFPAY | PROVIDERS: PCP Internal Medicine; Referring Provider Internal Medicine; Visit Provider Surgery ==

== ENCOUNTER 2021-05-15 09:45 | Emergency (ER) | payer OTHER, SELFPAY ==
--- NOTE | ~2021-05-15 | XR_ITS ---
EXAMINATION: XR CHEST CLINICAL INFORMATION: Chest pain. Fatigue. Rule out pneumonia. COMPARISON: 02/05/2020 TECHNIQUE: 2 views of the chest were obtained. FINDINGS: The lungs are well expanded. There is no focal consolidation, edema, or effusion. No pneumothorax. The cardiomediastinal silhouette is within normal limits. No acute osseous abnormality. Mild degenerative changes in the spine. XR/XR chest 2V IMPRESSION: Clear lungs.
[2021-05-15 10:43] VITALS: BP 154/91; PULSE 104; RESP 20; TEMP 37.3; O2SAT 99; BMI 43.9
--- NOTE | 2021-05-15 11:17 | ECG_ITS ---
Test Reason : DYSPNEA Blood Pressure : / mmHG Vent. Rate : 092 BPM Atrial Rate : 092 BPM P-R Int : 146 ms QRS Dur : 074 ms QT Int : 344 ms P-R-T Axes : 058 021 032 degrees QTc Int : 425 ms Normal sinus rhythm Low voltage QRS Otherwise normal ECG When compared with ECG of 05-FEB-2020 19:20, No significant change was found Referred By: Dimitri Vargas Electronically Signed By:KARL PEREZ MD
--- NOTE | 2021-05-15 11:18 | ED_ITS ---
HPI - General Adult General Chief complaint: Dyspnea Stated complaint: body ache, weakness Time Seen by Provider: 05/15/21 11:00 Source: patient Mode of arrival: ambulatory Limitations: no limitations History of Present Illness HPI narrative: 55-year-old female who presents emergency department for evaluation shortness of breath, rhinorrhea, occasional cough, body aches, chest pain and fatigue. The patient states that she has had symptoms for approximately 3 days. She states that her symptoms started out with sore throat but then this resolved. Patient has subsequently developed rhinorrhea and an occasional, nonproductive cough. She also complains of myalgias and fatigue. Patient states that she is getting intermittent heaviness in her chest, she points to her sternum when asked to localize the pain. She states the pain is a pressure-like pain which is 5/10 at most. The heaviness is worse with breathing. Patient has been taking ibuprofen with some relief of her symptoms. The patient works in a half-way. She states that several members of the half-way a tested positive for COVID-19. The patient did receive her 2 shot [employer] COVID 19 vaccination with her 2nd shot in August of 2020. Related Data Home Medications Medication Instructions Recorded Confirmed escitalopram oxalate 10 mg tablet 10 mg PO DAILY 04/14/20 11/03/20 fluticasone propionate 50 2 spray INTRANASAL DAILY 04/14/20 11/03/20 mcg/actuation nasal spray,suspension lisinopril 20 mg tablet 20 mg PO DAILY 04/14/20 11/03/20 Previous Rx's Medication Instructions Recorded tramadol 50 mg tablet 50 mg PO Q6H PRN #14 tab 08/03/20 Allergies Allergy/AdvReac Type Severity Reaction Status Date / Time atropine Allergy Intermediate abd pain Verified 04/21/20 12:16 ciprofloxacin [From CIPRO] Allergy Intermediate VOMITING Verified 04/21/20 12:16 chlordiazepoxide AdvReac Severe ABDOMINAL Verified 04/21/20 12:16 [From LIBRAX (WITH PAIN CLIDINIUM)] diphenoxylate [From LOMOTIL] AdvReac Severe ABDOMINAL Verified 04/21/20 12:16 PAIN codeine [CODEINE] AdvReac Intermediate NAUSEA Verified 04/21/20 12:16 PMFSH Past Medical History [facility] Narrative: Past medical history: Hypertension, depression, anxiety, diverticulitis, bowel obstruction Past surgical history: Partial colectomy for bowel obstruction and diverticulitis Medical History Anxiety Arthritis Back pain Diverticulitis HTN (hypertension) Lab test negative for COVID-19 virus Obese Wears reading eyeglasses Surgical History History of colectomy (~02/06/20) History of colectomy (~03/14/20) History of colonoscopy (~2018) Social History Social History Are you a primary child caregiver private home to a significant other at home: No Do you presently have visiting nurse or other home services: No Alcohol intake: never Smoked in Last 30 Days: No Second Hand Smoke Exposure: No Use of substances other than those prescribed or required for medical reasons: No Advance Directives: No Advance Directives Information Provided: No Advance Directives Date on File: 03/13/20 service: No Current occupational status: employed Physical Exam Vital Signs: Vital Signs: Last Vital Signs Temp 99.2 F 05/15/21 10:43 Pulse 104 H 05/15/21 10:43 Resp 20 05/15/21 10:43 BP 154/91 H 05/15/21 10:43 Pulse Ox 99 05/15/21 10:43 Body Mass Index 43.9 Const: General: cooperative and no acute distress Efren entation/consciousness: oriented to person and oriented to place Limitations: no limitations HENMT: Head: Yes normal to inspection, Yes normocephalic and Yes atraumatic Ears: external ears normal General nose exam: Normal external nose present Face and sinus: Yes normal facial exam Mouth: Normal oral and palatal mucosa present Throat: Yes posterior oropharynx normal Eyes: General: appearance normal, both eyes and all related structures Pupils: Equal, round and reactive pupils present Neck: Neck: Yes normal visual inspection, Yes no lymphadenopathy, Yes trachea midline and Yes supple Chest: Chest palpation & inspection: normal inspection of the chest and normal palpation of entire chest wall Resp: Effort & Inspection: normal respiratory effort and able to speak in complete sentences Auscultation: clear to auscultation bilaterally Cardio: Rate: regular rate Rhythm: regular rhythm Heart sounds: S1 normal heart sound present, S2 normal heart sound present and no murmurs GI: Inspection: Yes normal to inspection Palpation (GI): Soft to palpation, nontender and no guarding Auscultation: normal bowel sounds : General: Yes no CVA tenderness Back/Spine/Pelvis: Back: no CVA tenderness Skin: General skin exam: no rashes or lesions noted Neuro: General: oriented to person and oriented to place Cranial nerves: Yes CN's II-XII intact bilaterally and Yes Equal, round and reactive pupils present Cognition (Neuro): normal cognition Motor exam (neuro): 5/5 motor strength present throughout Extrem: General: Yes normal to inspection Psych: Appearance: grossly normal Speech and movement: Normal speech and movement present Affect: normal affect Attitude: cooperative Thought process: Normal thought process present Thought content: Normal thought content present Course Course Course Narrative: 55-year-old female who presents emergency department for evaluation intermittent chest pain, rhinorrhea, cough, myalgias, fatigue, rhinorrhea x3 days. Vital signs revealed an elevated blood pressure of 154/91, the patient does have essential hypertension. Patient had an elevated pulse of 104 otherwise vital signs normal. The patient's physical examination was unremarkable. Patient's presentation is concerning for possible viral syndrome. I ordered a COVID-19, influenza and RSV swab and a 12 EKG. Two-view chest x- ray will also be obtained. Patient was given Tylenol 975 orally for her myalgias. 1334: The patient's COVID-19, influenza and RSV tests were negative. Twelve EKG was unremarkable. The patient's chest x-ray revealed no pneumonia. The patient's presentation is consistent with a viral syndrome. I did discuss this with the patient, she was advised to take Tylenol and ibuprofen for pain and fever. She was given a note not return to work until 05/19/2021. She was given printed and verbal instructions and discharged home. Medical Decision Making Lab Data Labs: Lab Results 05/15/21 Range/Units 11:52 Influenza Type A (PCR) NEGATIVE (Negative) Influenza Type B (PCR) NEGATIVE (Negative) RSV RNA Qual (PCR) NEGATIVE (Negative) SARS-CoV-2 RNA (RT-PCR) NEGATIVE (Negative) Discharge Plan Discharge Clinical Impression: Viral syndrome Patient Disposition: Home, Self-Care Instructions: Viral Syndrome (ED) Additional Instructions: Your COVID-19 test was negative. Sometimes a COVID-19 test can be falsely negative. You should consider getting retested for COVID-19 in 4 days. Your influenza and RSV tests were negative Your chest x-ray revealed no pneumonia. Your EKG was normal. Your symptoms are consistent with a viral illness. Take ibuprofen 200 mg pills, 3 pills every 6 hours as needed for pain. Take Tylenol (acetaminophen) 500 mg pills, 2 pills every 4 to 6 hours as needed for pain. Follow-up with your doctor in 2 days. Please return to the emergency department if your symptoms get worse or if you develop any symptoms that are concerning to you. No work until 05/19/2021 Prescriptions: No Action tramadol 50 mg tablet 50 mg PO Q6H PRN (Reason: pain) Qty: 14 RF: 0 escitalopram oxalate 10 mg tablet 10 mg PO DAILY RF: 0 lisinopril 20 mg tablet 20 mg PO DAILY RF: 0 fluticasone propionate 50 mcg/actuation spray,suspension 2 spray intranasal DAILY RF: 0 Stand Alone Forms: Work/School Release
[2021-05-15] MEDS: Acetaminophen 325 MG TABLET 975 MG PO (11:46)
--- NOTE | 2021-05-15 11:47 | PC.NURSE ---
patient a&ox3, medicated per order, ekg being performed, covid swab being done, will continue to monitor.
[2021-05-15 12:35] LABS: Influenza A PCR NEGATIVE (Negative); Influenza B PCR NEGATIVE (Negative); Resp Syncy Virus RNA Qual PCR NEGATIVE (Negative); SARS COV2 PCR INHOUSE NEGATIVE (Negative)
== END 2021-05-15 14:00 | disposition home or self-care (01) ==
PROVIDERS: Emergency Provider Emergency Medicine Emergency Medical Services; PCP Obstetrics & Gynecology
DX: B34.9 Viral infection, unspecified (principal); I10 Essential (primary) hypertension; Z20.822 Contact with and (suspected) exposure to COVID-19
CPT/HCPCS: 0241U; 36415; 71046; 93005; 99283; 99284

== ENCOUNTER 2022-03-01 18:48 | Emergency (ER) | payer OTHER, SELFPAY | END 2022-03-01 19:20 | disposition left against medical advice (07) | PROVIDERS: Emergency Provider Emergency Medicine | DX: R10.9 Unspecified abdominal pain (principal) ==

== ENCOUNTER 2022-03-02 08:57 | Emergency (ER) | payer OTHER, SELFPAY ==
--- NOTE | ~2022-03-02 | CT_ITS ---
EXAMINATION: CT ABDOMEN AND PELVIS WITH CONTRAST CLINICAL INFORMATION: Central abdominal pain, tenderness, diarrhea and history of diverticulitis COMPARISON: None TECHNIQUE: Multidetector volumetric images were obtained from the superior aspect of the liver through the pubic symphysis following administration 85 mL of Omnipaque 350 intravenous contrast. Sagittal and coronal reformatted images were obtained on the technologist's workstation. Oral contrast: No This CT examination was performed using dose optimization techniques as appropriate, variously including the following: *Automated exposure control *Adjustment of mA and/or kV according to patient size (this includes techniques or standardized protocols for targeted exams where dose is matched to indication/reason for exam; i.e. extremities or head) *Use of iterative reconstruction technique DLP: 1161 mGy-cm FINDINGS: LUNG BASES: There is platelike atelectasis in the lingula. The heart size is normal. LIVER, GALLBLADDER, AND BILIARY TREE: The liver is normal in size, shape, and attenuation. No focal hepatic lesion or biliary ductal dilatation is present. The gallbladder is unremarkable with no evidence of radiopaque gallstones, gallbladder wall thickening, or obvious pericholecystic inflammatory changes. PANCREAS: Unremarkable. SPLEEN: Unremarkable. ADRENAL GLANDS: Unremarkable. KIDNEYS AND URETERS: The kidneys are normal in size, shape, and attenuation. No hydronephrosis, hydroureter, or calculi seen. No perinephric stranding. BLADDER: Unremarkable. GASTROINTESTINAL TRACT: There is scattered stool and gas seen throughout the colon without distention. There are postsurgical changes seen within the mid transverse colon which lies within the herniated sac. Also visualized are postsurgical changes in the sigmoid colon with widely patent lumen. The small bowel loops are normal caliber. Appendix is not visualized with certainty. ABDOMINAL WALL: There is a large diastases of anterior abdominal with herniation of colon, liver, gallbladder and small bowel loops. LYMPH NODES: Normal. VASCULAR: Unremarkable. PELVIC VISCERA: There is no free air or free fluid. There is no abnormal pelvic lymph nodes or mass. OSSEOUS STRUCTURES: There are degenerative disc changes L3-L4, L4-L5 and L5-S1 disc levels with mild ventral and posterior spondylosis. No aggressive lytic or sclerotic process seen.. CT/CT abdomen pelvis w con IMPRESSION: Large ventral hernias agree diastases containing transverse colon, gallbladder, part of the liver and small bowel loops. There are postsurgical changes involving the mid transverse colon and the sigmoid colon with widely patent lumen. Mild constipation. No mural thickening seen to suspect any colitis. No diverticuli seen. Fleischner guidelines were followed.
[2022-03-02 09:08] VITALS: BP 153/70; PULSE 89; RESP 18; TEMP 37; O2SAT 99; BMI 46.4
[2022-03-02 09:56] LABS: COVID-19 Test Negative (Negative)
[2022-03-02 11:28] LABS: Hemoglobin 12.1 g/dl (12.0-16.0); Mean Corpuscular HGB Conc 32.7 g/dl (31.0-35.0); Mean Corpuscular Hemoglobin 31.7 pg (27.0-33.0); Mean Corpuscular Volume 96.9 fL (80.0-98.0); Mean Platelet Volume 10.9 fL (9.4-12.3); Platelet Count 190 X10*3/uL (160-400); Red Blood Count 3.82 X10*6/uL (4.20-5.50); Red Cell Distribution Width 12.9 % (11.0-16.0); White Blood Count 10.7 X10*3/uL (4.8-10.8)
[2022-03-02 11:50] LABS: Alanine Aminotransferase 26 U/L (0-31); Alkaline Phosphatase 84 U/L (39-117); Anion Gap 17 (12-20); Aspartate Amino Transferase 26 U/L (5-31); Bilirubin Direct < 0.2 mg/dL (0.0-0.5); Bilirubin Total 0.3 mg/dL (0.0-1.0); Blood Urea Nitrogen 19 mg/dL (9-16); Calcium 9.1 mg/dL (8.4-10.2); Carbon Dioxide 25 mmol/L (22-29); Chloride 104 mmol/L (96-108); Creatinine Clr Calc Pharmacy 105.1; Estimated Glomerular Filt Rate > 60; Glucose Random 119 mg/dL (60-115); Lipase 95 U/L (8-78); Potassium 5.6 mmol/L (3.3-5.1); Sodium 140 mmol/L (135-145); Total Protein 6.7 g/dL (6.5-8.0)
--- NOTE | 2022-03-02 11:54 | ED.ABDPAIN ---
HPI - Abdominal Pain General Chief Complaint: Abdominal Pain Stated Complaint: abd pain Time Seen by Provider: 03/02/22 10:57 Source: patient Mode of arrival: ambulatory Limitations: no limitations History of Present Illness HPI narrative: 56 yo female with history of obesity, anxiety, back pain, HTN, history of perforated sigmoid diverticulitis status post colectomy and subsequent colostomy reversal back in 2019 presents to the ER with middle abdominal pain that started yesterday around 11:00. She reports the pain was severe yesterday and was accompanied with some non-bloody diarrhea. The pain is slowly improved in severity but is persistent today. She reports the pain feels similar to when she had her perforated diverticulitis and she is extremely nervous and anxious about this. She reports she has been working a lot lately and has been feeling run down and unwell. She has had headaches for few days now along with body aches and muscle aches. No known COVID exposures. MD elicited complaint: abdominal pain Pertinent past history: diverticulitis Onset (ago): day(s) (1) Pain Consistency: constant Location: periumbilical Severity: moderate Pain scale (0-10): 7 Quality: stabbing and aching Radiation: none Migration to: no migration Exacerbating factors: nothing Relieving factors: nothing Context: history of similar episodes Associated symptoms: diarrhea and chills Related Data Home Medications Medication Instructions Recorded Confirmed escitalopram oxalate 10 mg tablet 10 mg PO DAILY 04/14/20 11/03/20 fluticasone propionate 50 2 spray intranasal DAILY 04/14/20 11/03/20 mcg/actuation nasal spray,suspension lisinopril 20 mg tablet 20 mg PO DAILY 04/14/20 11/03/20 Previous Rx's Medication Instructions Recorded tramadol 50 mg tablet 50 mg PO Q6H PRN pain #14 tabs 08/03/20 Allergies Allergy/AdvReac Type Severity Reaction Status Date / Time atropine Allergy Intermediate abd pain Verified 04/21/20 12:16 ciprofloxacin [From CIPRO] Allergy Intermediate VOMITING Verified 04/21/20 12:16 chlordiazepoxide AdvReac Severe ABDOMINAL Verified 04/21/20 12:16 [From LIBRAX (WITH PAIN CLIDINIUM)] diphenoxylate [From LOMOTIL] AdvReac Severe ABDOMINAL Verified 04/21/20 12:16 PAIN codeine [CODEINE] AdvReac Intermediate NAUSEA Verified 04/21/20 12:16 Review of Systems Review of Systems Constitutional: No Fever, + Chills ENT/Mouth: No sore throat, No Rhinorrhea, No Swallowing Difficulty Eyes: No Eye Pain, No Swelling, No Redness Cardiovascular: No Chest Pain, No SOB, No Orthopnea, No Edema Respiratory: No Cough, No Sputum, No Wheezing, No dyspnea Gastrointestinal: No Nausea, No Vomiting,+ Diarrhea, + abdominal Pain, No Hematochezia, No Melena Genitourinary: No Dysuria, No Urinary Frequency, No Hematuria Musculoskeletal: No joint pain, + Myalgias Skin: No Skin Lesions, No rash Neuro: + Weakness, No Numbness, No Dizziness, + Headache Psych: + Anxiety/Panic, No Depression Heme/Lymph: No Bruising, No Lymphadenopathy Endocrine: No Polyuria, No Polydipsia PMFSH Past Medical History Medical History Anxiety Arthritis Back pain Diverticulitis HTN (hypertension) Lab test negative for COVID-19 virus Obese Wears reading eyeglasses Surgical History History of colectomy (~02/06/20) History of colectomy (~03/14/20) History of colonoscopy (~2018) Social History Social History Are you a primary behavioral health care manager to a significant other at home: No Do you presently have visiting nurse or other home services: No Alcohol intake: never Second Hand Smoke Exposure: No Advance Directives: Yes Advance Directives Information Provided: Yes Advance Directives on File: No Advance Directives Date on File: 03/13/20 service: No Current occupational status: employed Physical Exam ED Vital Signs: Vital Signs - 24 hr 03/02/22 09:08 03/02/22 12:20 03/02/22 13:57 Temperature 98.6 F Pulse Rate 89 84 89 Respiratory Rate 18 18 16 Blood Pressure 153/70 H 131/84 130/68 Pulse Oximetry 99 95 96 Oxygen Delivery Method Room Air Room Air Room Air BMI result Body Mass Index 46.4 Appearance: Alert. Oriented X3. Anxious Eyes: Pupils equal, round and reactive to light. ENT: Pharynx normal. Neck: Normal inspection. Neck supple. CVS: Normal heart rate and rhythm. Pulses normal. Respiratory: No respiratory distress. Breath sounds normal. Abdomen: Morbidly obese, well healed longitudical surgical scar. Soft with middle abdominal tenderness, no rebound or guarding, normal +BS x4 Skin: Skin warm and dry. Normal skin color. Normal skin turgor. No rashes. Extremities: No lower extremity edema. Neuro: Oriented X 3. No motor deficit. No sensory deficit. Course Course Course Narrative: 56-year-old female with a history of perforated diverticulitis status post diverting loop transverse colostomy in January 2020, reversal of the transverse colostomy who presents to the ER for evaluation of central abdominal pain and diarrhea that started yesterday. She reports the pain yesterday was worse and is today but she still feels some aching in her stomach. She has no nausea or vomiting. She has no fever but endorses chills. She has some body aches, headaches. COVID swab sent from triage and she is negative for COVID. Will get lab workup and CT scan for further evaluation. Reevaluation(s) Reevaluation #1: Labs show mild hyperkalemia, K 5.6. She is on lisinopril. She is getting IV fluids for this. CT scan is showing no significant acute abnormality, chronic postop changes noted, no evidence of SBO, no evidence of colitis or diverticulitis. Will give patient a p.o. trial and see how she does. Reevaluation #2: Patient tolerating p.o.. She would like to be discharged home. At this time she is stable for discharge, she will follow-up with her outpatient provider for repeat labs and for re-evaluation. She is given return precautions. She is stable for discharge home. MDM - Abdominal Pain Lab Data Result diagrams: 03/02/22 11:21 03/02/22 11:21 Labs: Lab Results 03/02/22 03/02/22 03/02/22 Range/Units 09:21 11:21 11:21 WBC 10.7 (4.8-10.8) X10*3/uL RBC 3.82 L (4.20-5.50) X10*6/uL Hgb 12.1 (12.0-16.0) g/dl Hct 37.0 (37.0-47.0) % MCV 96.9 (80.0-98.0) fL MCH 31.7 (27.0-33.0) pg MCHC 32.7 (31.0-35.0) g/dl RDW 12.9 (11.0-16.0) % Plt Count 190 (160-400) X10*3/uL MPV 10.9 (9.4-12.3) fL Absolute Nucleated RBC 0.000 (0.0-0.012) X10*3/uL Nucleated RBC % (auto) 0.0 (0.0-0.2) /100WBC Sodium 140 (135-145) mmol/L Potassium 5.6 H (3.3-5.1) mmol/L Chloride 104 (96-108) mmol/L Carbon Dioxide 25 (22-29) mmol/L Anion Gap 17 (12-20) BUN 19 H (9-16) mg/dL Creatinine 0.63 (0.5-1.4) mg/dL Estim Creat Clear Calc 105.1 Estimated GFR > 60 Random Glucose 119 H (60-115) mg/dL Calcium 9.1 D (8.4-10.2) mg/dL Total Bilirubin 0.3 (0.0-1.0) mg/dL Direct Bilirubin < 0.2 (0.0-0.5) mg/dL AST 26 D (5-31) U/L ALT 26 (0-31) U/L Alkaline Phosphatase 84 (39-117) U/L Total Protein 6.7 (6.5-8.0) g/dL Albumin 4.0 (3.5-5.0) g/dL Lipase 95 H (8-78) U/L Urine Color Urine Appearance Urine pH (5.0-8.0) Ur Specific [place] (1.005-1.025) Urine Protein (Neg-Trace) mg/dL Urine Glucose (UA) (Negative) mg/dL Urine Ketones (Negative) mg/dL Urine Blood (Negative) Urine Nitrite (Negative) Ur Leukocyte Esterase (Negative) COVID-19 ([facility]) Negative (Negative) COVID-19 Clin Com See Note 03/02/22 Range/Units 13:55 WBC (4.8-10.8) X10*3/uL RBC (4.20-5.50) X10*6/uL Hgb (12.0-16.0) g/dl Hct (37.0-47.0) % MCV (80.0-98.0) fL MCH (27.0-33.0) pg MCHC (31.0-35.0) g/dl RDW (11.0-16.0) % Plt Count (160-400) X10*3/uL MPV (9.4-12.3) fL Absolute Nucleated RBC (0.0-0.012) X10*3/uL Nucleated RBC % (auto) (0.0-0.2) /100WBC Sodium (135-145) mmol/L Potassium (3.3-5.1) mmol/L Chloride (96-108) mmol/L Carbon Dioxide (22-29) mmol/L Anion Gap (12-20) BUN (9-16) mg/dL Creatinine (0.5-1.4) mg/dL Estim Creat Clear Calc Estimated GFR Random Glucose (60-115) mg/dL Calcium (8.4-10.2) mg/dL Total Bilirubin (0.0-1.0) mg/dL Direct Bilirubin (0.0-0.5) mg/dL AST (5-31) U/L ALT (0-31) U/L Alkaline Phosphatase (39-117) U/L Total Protein (6.5-8.0) g/dL Albumin (3.5-5.0) g/dL Lipase (8-78) U/L Urine Color Yellow Urine Appearance Hazy Urine pH 6.0 (5.0-8.0) Ur Specific [place] 1.025 (1.005-1.025) Urine Protein Negative (Neg-Trace) mg/dL Urine Glucose (UA) Negative (Negative) mg/dL Urine Ketones Negative (Negative) mg/dL Urine Blood Negative (Negative) Urine Nitrite Negative (Negative) Ur Leukocyte Esterase Negative (Negative) COVID-19 ([facility]) (Negative) COVID-19 Clin Com Critical Care Time Critical Care Time Critical Care Time: No Discharge Plan Discharge Clinical Impression: Gastroenteritis Patient Disposition: Home, Self-Care Instructions: Gastroenteritis (ED) Additional Instructions: You lab workup today was unremarkable, aside from mildly elevated potassium. You were given IV fluids for this. Recommend following up with your doctor for repeat lab work. Your urine test was negative for infection. You most likely have a viral GI bug also known as gastroenteritis. Treatment is supportive care, symptoms usually resolve on their own in 48-72 hours. Recommend rest and plenty of oral hydration. Stick to a bland diet like soup and toast while you are not feeling well. Take the prescribed medication as needed for nausea. Recommend over the counter Pepto Bismol or Imodium for upset stomach and diarrhea. Follow up with your doctor as needed. If you develop new or worsening symptoms call 911 or come back to the ER for further evaluation. Prescriptions: No Action tramadol 50 mg tablet 50 mg PO Q6H PRN (Reason: pain) Qty: 14 0RF escitalopram oxalate 10 mg tablet 10 mg PO DAILY lisinopril 20 mg tablet 20 mg PO DAILY fluticasone propionate 50 mcg/actuation spray,suspension 2 spray intranasal DAILY
[2022-03-02] MEDS: Morphine Sulfate 4 MG/ML CARTRIDGE IVPUSH (12:08)
[2022-03-02] MEDS: 0.9 % Sodium Chloride 1,000 ML 999 ML IVCONT (12:08)
[2022-03-02] MEDS: ondansetron HCL 4 MG/2 ML VIAL IVPUSH (12:08)
[2022-03-02 12:20] VITALS: BP 131/84; PULSE 84; RESP 18; O2SAT 95
--- NOTE | 2022-03-02 13:05 | PC.NURSE ---
abd pain improved, skin wpd, steady gait to bathroom, has a tracey, ns infusing, re eval done by hosea
[2022-03-02] MEDS: iohexoL 350 MG/ML 100 ML INFUS..BTL IV (13:33)
[2022-03-02 13:57] VITALS: BP 130/68; PULSE 89; RESP 16; O2SAT 96
[2022-03-02 14:10] LABS: Appearance Urine Hazy; Color Urine Yellow; Glucose Urine UA Negative (Negative); Leukocyte Esterase Urine Negative (Negative); Nitrite Urine Negative (Negative); Specific Gravity - Urine 1.025 (1.005-1.025); Urine Blood Negative (Negative); Urine Ketones Negative (Negative); Urine Protein Negative (Neg-Trace)
--- NOTE | 2022-03-02 15:12 | PC.NURSE ---
assumed care of pt, per pt tolerating PO, provider notified.
== END 2022-03-02 16:14 | disposition home or self-care (01) ==
PROVIDERS: Emergency Provider Student in an Organized Health Care Education/Training Program; PCP Internal Medicine
DX: K52.9 Noninfective gastroenteritis and colitis, unspecified (principal); R10.13 Epigastric pain; Z20.822 Contact with and (suspected) exposure to COVID-19; Z79.899 Other long term (current) drug therapy
CPT/HCPCS: 36415; 74177; 80048; 80076; 81003; 83690; 85027; 87635; 96361; 96374; 96375; 99283; 99284; 99285; J2270; J2405; Q9967